=== PATIENT | male | born 1950 | race Caucasian/White ===

== ENCOUNTER 2017-01-20 22:36 | Observation (INO) | payer BC, MEDICARE, OTHER ==
[~2017-01-20] VITALS: Ht 167.6 cm; Wt 71.0 kg
[2017-01-20] MEDS ORDERED: LORazepam 2 MG/ML, 1ML IM ONE (23:00)
[2017-01-20] MEDS ORDERED: ZIPRASIDONE 20 MG INJ IM ONE ×2 (23:00→23:26)
[2017-01-20] MEDS ORDERED: LORazepam 1MG TABLET ONE (23:26)
[2017-01-20 23:54] LABS: BLOOD UREA NITROGEN 19 mg/dL (7-18)
[2017-01-20 23:56] LABS: ACETAMINOPHEN < 2 mcg/mL (10-30)
[2017-01-21] MEDS ORDERED: HYDROcodone/APAP 5/325 TABLET PO ONE (01:00)
[2017-01-21] MEDS ORDERED: HYDROcodone/APAP 5/325 TABLET ONE (01:04)
[2017-01-21] MEDS ORDERED: OXYC15TA PO (02:39)
[2017-01-21] MEDS ORDERED: [UNRECOGNIZED DRUG - CODE] PO (02:39)
[2017-01-21] MEDS ORDERED: POLYETHYLENE GLYCOL 17 GM PACKET PO PRN (03:00)
[2017-01-21] MEDS ORDERED: DIPHENHYDRAMINE 50 MG CAPSULE PO PRN (03:00)
[2017-01-21] MEDS ORDERED: DOCUSATE 100 MG CAPSULE PO PRN (03:00)
[2017-01-21] MEDS ORDERED: LORazepam 1MG TABLET PO PRN (03:00)
[2017-01-21] MEDS ORDERED: morphine SULFATE ORAL.CONC 20 MG/ML PO PRN (03:00)
[2017-01-21] MEDS ORDERED: ACETAMINOPHEN 325 MG TABLET PO PRN (03:00)
[2017-01-21] MEDS ORDERED: HALOPERIDOL 5 MG TABLET PO PRN (03:00)
[2017-01-21] MEDS ORDERED: ZIPRASIDONE 20 MG INJ IM PRN (03:00)
[2017-01-21] MEDS ORDERED: ONDANSETRON ODT 4 MG PO PRN (03:00)
[2017-01-21] MEDS: OXYcodone IR 5MG TABLET PO PRN ×2 (04:17→08:43)
[2017-01-21 05:42] VITALS: BP 130/56
[2017-01-21 07:40] VITALS: BP 153/95
[2017-01-21] MEDS ORDERED: SENNA/DOCUSATE TABLET PO SCH (09:00)
[2017-01-21 14:03] LABS: DAU SCREEN DISCLAIMER
[2017-01-21] MEDS ORDERED: OXYcodone IR 5MG TABLET PO PRN (15:00)
== END 2017-01-21 18:24 ==
LOC: ED 01-21 02:18 → EDIP 01-21 02:34 → SUATTDRO 01-21 02:36 → 3E 01-21 03:30
PROVIDERS: ADMIT Family Medicine; ATTEND Family Medicine
DX: R45.851 Suicidal ideations (principal); F10.120 Alcohol abuse with intoxication, uncomplicated; F33.2 Major depressive disorder, recurrent severe without psychotic features; F43.21 Adjustment disorder with depressed mood
CPT/HCPCS: 36415; 80048; 80307; 80329; 82040; 85025; 96372; 99285; G0378; J2060; J3486; Q0177; G0480

== ENCOUNTER 2017-03-05 10:35 | Emergency (ER) | payer MEDICARE ==
[~2017-03-05] VITALS: Ht 165.1 cm; Wt 63.0 kg
[~2017-03-05 10:35] MED LIST: OXYC15TA PO; [UNRECOGNIZED DRUG - CODE] PO
[2017-03-05 10:52] VITALS: BP 138/87
== END 2017-03-05 11:50 | disposition left against medical advice (07) ==
LOC: ED 11:30
DX: F10.10 Alcohol abuse, uncomplicated (principal); Z53.21 Procedure and treatment not carried out due to patient leaving prior to being seen by health care provider

== ENCOUNTER 2017-04-26 21:24 | Emergency (ER) | payer MEDICARE ==
[~2017-04-26] VITALS: Ht 167.6 cm; Wt 67.0 kg
[2017-04-26 21:30] VITALS: BP 107/74
[2017-04-26] MEDS ORDERED: DIPH,PERTUSS(ACELL),TET VAC/PF 0.5 ML IM-VACC ONE (22:00)
== END 2017-04-26 22:21 | disposition left against medical advice (07) ==
LOC: ED 22:06
DX: S01.112A Laceration without foreign body of left eyelid and periocular area, initial encounter (principal); S01.01XA Laceration without foreign body of scalp, initial encounter; F32.9 Major depressive disorder, single episode, unspecified; W19.XXXA Unspecified fall, initial encounter; Y93.89 Activity, other specified; Y92.488 Other paved roadways as the place of occurrence of the external cause; Y99.8 Other external cause status
CPT/HCPCS: 99283

== ENCOUNTER 2017-05-01 12:02 | Inpatient (IN) | payer MEDICARE ==
[~2017-05-01] VITALS: Ht 170.2 cm; Wt 68.0 kg
[2017-05-01] MEDS ORDERED: ZIPRASIDONE 20 MG INJ IM ONE ×2 (12:22→12:30)
[2017-05-01] MEDS ORDERED: DIPH,PERTUSS(ACELL),TET VAC/PF 0.5 ML IM-VACC ONE ×2 (12:30→14:43)
[2017-05-01] MEDS ORDERED: PLEASE ENTER HEIGHT AND WEIGHT MC SCH (12:30)
[2017-05-01 14:08] LABS: HEMATOCRIT 32.4 % (39.2-51.8); HEMOGLOBIN 10.8 g/dL (13.7-18.0)
[2017-05-01 14:18] LABS: BLOOD UREA NITROGEN 9 mg/dL (7-18)
[2017-05-01 14:43] LABS: ACETAMINOPHEN 2 mcg/mL (10-30); ASPARTATE AMINO TRANSFERASE 165 U/L (15-37)
[2017-05-01] MEDS ORDERED: LORazepam 2 MG/ML, 1ML ONE (14:43)
[2017-05-01 14:53] LABS: DAU SCREEN DISCLAIMER
[2017-05-01] MEDS ORDERED: LORazepam 2 MG/ML, 1ML IVPush PRN (15:00)
[2017-05-01] MEDS: D5%-0.45NACL+KCL 40MEQ 1,000 ML IV SCH ×2 (15:00→20:08)
[2017-05-01] MEDS ORDERED: MAGNESIUM SULFATE 1 GM, THIAMINE 100 MG, FOLIC ACID 1 MG, MVI ADULT 10 ML in SODIUM CHL... IV ONE (15:00)
[2017-05-01] MEDS ORDERED: POTASSIUM CHLORIDE 20 MEQ TAB.ER.PRT PO ONE (15:00)
[2017-05-01] MEDS ORDERED: ACETAMINOPHEN 325 MG TABLET PO PRN (16:00)
[2017-05-01] MEDS ORDERED: POLYETHYLENE GLYCOL 17 GM PACKET PO PRN (16:00)
[2017-05-01] MEDS ORDERED: DOCUSATE 100 MG CAPSULE PO PRN (16:00)
[2017-05-01] MEDS ORDERED: morphine SULFATE 10 MG/ML, 1ML IVPush PRN (16:00)
[2017-05-01] MEDS ORDERED: hydrALAzine 20 MG/ML, 1ML IVPush PRN (16:00)
[2017-05-01] MEDS ORDERED: ONDANSETRON 2MG/ML, 2ML IVPush PRN (16:00)
[2017-05-01] MEDS ORDERED: TRAZODONE 50MG TABLET PO PRN (16:00)
[2017-05-01] MEDS ORDERED: LORazepam 2 MG/ML, 1ML IV PRN (16:00)
[2017-05-01 16:35] VITALS: BP 136/86
[2017-05-01] MEDS: LORazepam 2 MG/ML, 1ML IV PRN ×4 (17:26→23:43)
[2017-05-01] MEDS: OXYcodone IR 5MG TABLET PO PRN ×2 (18:24→22:26)
[2017-05-01 18:45] VITALS: BP 150/94
[2017-05-01] MEDS: POTASSIUM CHLORIDE 20 MEQ TAB.ER.PRT PO SCH (20:08)
[2017-05-01] MEDS ORDERED: TRAZODONE 50MG TABLET ONE (23:40)
[2017-05-01] MEDS: D5%-0.45NACL+KCL 20MEQ 1,000 ML IV SCH (23:48)
[2017-05-02 01:15] VITALS: BP 127/82
[2017-05-02] MEDS: LORazepam 2 MG/ML, 1ML IV PRN ×14 (01:40→23:31)
[2017-05-02] MEDS: OXYcodone IR 5MG TABLET PO PRN ×3 (02:31→10:53)
[2017-05-02] MEDS ORDERED: LORazepam 2 MG/ML, 1ML ONE ×6 (05:47→14:16)
[2017-05-02 06:07] LABS: ASPARTATE AMINO TRANSFERASE 99 U/L (15-37); BLOOD UREA NITROGEN 11 mg/dL (7-18)
[2017-05-02 06:19] LABS: HEMATOCRIT 30.9 % (39.2-51.8); HEMOGLOBIN 10.4 g/dL (13.7-18.0); WHITE BLOOD COUNT 6.1 x10^3/uL (3.4-10)
[2017-05-02] MEDS: MULTIVITAMINS/MINERALS TABLET PO SCH (07:56)
[2017-05-02] MEDS: POTASSIUM CHLORIDE 20 MEQ TAB.ER.PRT PO SCH ×2 (07:56→18:41)
[2017-05-02 08:07] VITALS: BP 146/87
[2017-05-02] MEDS ORDERED: POTASSIUM CHLORIDE 20 MEQ TAB.ER.PRT PO ONE (09:30)
[2017-05-02] MEDS ORDERED: DIPHENHYDRAMINE 50 MG/ML, 1ML ONE (12:01)
[2017-05-02] MEDS ORDERED: DIPHENHYDRAMINE 50 MG/ML, 1ML IVPush ONE (12:30)
[2017-05-02 12:40] VITALS: BP 153/85
[2017-05-02] MEDS: D5%-0.45NACL+KCL 20MEQ 1,000 ML IV SCH (15:34)
[2017-05-02 18:27] VITALS: BP 136/84
[2017-05-03 00:40] VITALS: BP 179/111
[2017-05-03] MEDS: LORazepam 2 MG/ML, 1ML IV PRN ×7 (01:21→23:20)
[2017-05-03] MEDS: D5%-0.45NACL+KCL 20MEQ 1,000 ML IV SCH ×2 (05:22→23:07)
[2017-05-03 05:34] LABS: ASPARTATE AMINO TRANSFERASE 83 U/L (15-37); BLOOD UREA NITROGEN 3 mg/dL (7-18)
[2017-05-03 07:03] VITALS: BP 122/82
[2017-05-03] MEDS: OXYcodone IR 5MG TABLET PO PRN ×3 (07:37→16:30)
[2017-05-03] MEDS: MULTIVITAMINS/MINERALS TABLET PO SCH (09:21)
[2017-05-03 12:34] VITALS: BP 123/68
[2017-05-03 19:57] VITALS: BP 116/81
[2017-05-03 22:30] VITALS: BP 122/76
[2017-05-04 00:50] VITALS: BP 119/81
[2017-05-04] MEDS: LORazepam 2 MG/ML, 1ML IV PRN ×7 (01:14→20:21)
[2017-05-04] MEDS: OXYcodone IR 5MG TABLET PO PRN ×3 (04:35→21:08)
[2017-05-04 07:31] VITALS: BP 111/74
[2017-05-04] MEDS: MULTIVITAMINS/MINERALS TABLET PO SCH (08:31)
[2017-05-04] MEDS: D5%-0.45NACL+KCL 20MEQ 1,000 ML IV SCH (12:47)
[2017-05-04 14:07] VITALS: BP 117/78
[2017-05-04] MEDS ORDERED: hydrALAzine 20 MG/ML, 1ML IVPush PRN (15:30)
[2017-05-04] MEDS ORDERED: morphine SULFATE 10 MG/ML, 1ML IVPush PRN (15:30)
[2017-05-04] MEDS ORDERED: DOCUSATE 100 MG CAPSULE PO PRN (15:30)
[2017-05-04] MEDS ORDERED: POLYETHYLENE GLYCOL 17 GM PACKET PO PRN (15:30)
[2017-05-04] MEDS ORDERED: ONDANSETRON 2MG/ML, 2ML IVPush PRN (15:30)
[2017-05-04] MEDS ORDERED: ACETAMINOPHEN 325 MG TABLET PO PRN (15:30)
[2017-05-04] MEDS ORDERED: LORazepam 2 MG/ML, 1ML IV PRN ×4 (15:30)
[2017-05-04 19:12] VITALS: BP 113/74
[2017-05-05] MEDS: D5%-0.45NACL+KCL 20MEQ 1,000 ML IV SCH (00:40)
[2017-05-05] MEDS: OXYcodone IR 5MG TABLET PO PRN ×6 (01:08→23:57)
[2017-05-05 01:31] VITALS: BP 130/84
[2017-05-05 07:11] VITALS: BP 130/93
[2017-05-05] MEDS: MULTIVITAMINS/MINERALS TABLET PO SCH (09:42)
[2017-05-05 13:07] VITALS: BP 115/80
[2017-05-05 18:42] VITALS: BP 119/82
[2017-05-06 00:38] VITALS: BP 130/86
[2017-05-06] MEDS: OXYcodone IR 5MG TABLET PO PRN ×3 (04:07→20:19)
[2017-05-06 07:55] VITALS: BP 114/75
[2017-05-06] MEDS: MULTIVITAMINS/MINERALS TABLET PO SCH (09:35)
[2017-05-06 14:44] VITALS: BP 125/78
[2017-05-06 21:31] VITALS: BP_SYST 118; BP_SYST 133; BP_DIAS 80; BP_DIAS 87
[2017-05-07 01:55] VITALS: BP 110/76
[2017-05-07] MEDS: OXYcodone IR 5MG TABLET PO PRN ×3 (04:43→21:13)
[2017-05-07 08:30] VITALS: BP 128/84
[2017-05-07] MEDS: MULTIVITAMINS/MINERALS TABLET PO SCH (09:36)
[2017-05-07 18:16] VITALS: BP 132/80
[2017-05-07 18:56] VITALS: BP 137/87
[2017-05-08 02:00] VITALS: BP 131/86
[2017-05-08] MEDS: OXYcodone IR 5MG TABLET PO PRN ×3 (05:12→21:37)
[2017-05-08 06:41] VITALS: BP 136/86
[2017-05-08] MEDS: MULTIVITAMINS/MINERALS TABLET PO SCH (09:05)
[2017-05-08 13:13] VITALS: BP 122/80
[2017-05-08] MEDS ORDERED: MULT-484 PO (17:00)
[2017-05-08 19:55] VITALS: BP 137/86
[2017-05-08] MEDS: TRAZODONE 50MG TABLET PO PRN ×2 (20:28→21:37)
[2017-05-09] MEDS ORDERED: LORazepam 1MG TABLET PO PRN (01:00)
[2017-05-09] MEDS: OXYcodone IR 5MG TABLET PO PRN ×2 (05:43→13:27)
[2017-05-09 07:19] VITALS: BP 119/83
[2017-05-09] MEDS: MULTIVITAMINS/MINERALS TABLET PO SCH (08:14)
== END 2017-05-09 14:19 | DRG 896 ==
LOC: ED 12:51 → EDIP 14:51 → 5SO 16:29 → 4WST 16:38 → 3NE 05-05 22:15 → 3E 05-08 19:15
PROVIDERS: ADMIT Internal Medicine; ATTEND Internal Medicine
PROC: HZ2ZZZZ Detoxification Services for Substance Abuse Treatment (ICD-10-PCS; principal; 2017-05-01)
DX: F10.239 Alcohol dependence with withdrawal, unspecified (principal); G93.41 Metabolic encephalopathy; R45.851 Suicidal ideations; E87.0 Hyperosmolality and hypernatremia; E44.0 Moderate protein-calorie malnutrition; D50.9 Iron deficiency anemia, unspecified; F10.229 Alcohol dependence with intoxication, unspecified; Y90.9 Presence of alcohol in blood, level not specified; K70.10 Alcoholic hepatitis without ascites; E87.6 Hypokalemia; Z68.23 Body mass index [BMI] 23.0-23.9, adult; R62.7 Adult failure to thrive; D53.9 Nutritional anemia, unspecified; F32.9 Major depressive disorder, single episode, unspecified; R29.6 Repeated falls; Z87.891 Personal history of nicotine dependence; Z90.49 Acquired absence of other specified parts of digestive tract; Z91.5 Personal history of self-harm
CPT/HCPCS: 36415; 70450; 80053; 80074; 80307; 80329; 82140; 82550; 82607; 83735; 84100; 84425; 85025; 85610; 90471; 90715; 93005; 96372; 96374; J3411; J3475; J3486; G0480; J1200; J2060; J3480; J7030

== ENCOUNTER 2017-05-27 12:30 | Inpatient (IN) | payer MEDICARE, OTHER ==
[~2017-05-27] VITALS: Ht 165.1 cm; Wt 60.2 kg
[~2017-05-27 12:30] MED LIST changes: +MULT-484 PO
[2017-05-27] MEDS ORDERED: SODIUM CHLORIDE 0.9% 1,000ML IVBOLUS ONE ×2 (13:30→17:30)
[2017-05-27] MEDS ORDERED: THIAMINE 100 MG in SODIUM CHLORIDE 0.9% 50 ML IVPB ONE ×2 (13:30→14:30)
[2017-05-27] MEDS ORDERED: SODIUM CHLORIDE FLUSH 10ML SYR IVF ONE (13:30)
[2017-05-27] MEDS ORDERED: LORazepam 2 MG/ML, 1ML ONE ×4 (13:43→19:59)
[2017-05-27 13:46] LABS: HEMATOCRIT 40.6 % (39.2-51.8); HEMOGLOBIN 13.5 g/dL (13.7-18.0); WHITE BLOOD COUNT 7.8 x10^3/uL (3.4-10)
[2017-05-27 13:55] LABS: ASPARTATE AMINO TRANSFERASE 244 U/L (15-37); BLOOD UREA NITROGEN 12 mg/dL (7-18)
[2017-05-27] MEDS: LORazepam 2 MG/ML, 1ML IVPush PRN ×4 (14:14→23:06)
[2017-05-27] MEDS ORDERED: NS + 40MEQ KCL 1,000 ML IV ONE ×2 (16:13→16:33)
[2017-05-27] MEDS ORDERED: POTASSIUM CHLORIDE 20 MEQ TAB.ER.PRT PO ONE (16:30)
[2017-05-27] MEDS ORDERED: POTASSIUM CHLORIDE 20 MEQ TAB.ER.PRT ONE (16:33)
[2017-05-27] MEDS ORDERED: ONDANSETRON 2MG/ML, 2ML ONE (17:22)
[2017-05-27] MEDS ORDERED: FOLIC ACID 1 MG, THIAMINE 100 MG, MVI ADULT 10 ML in D5%-0.9% NACL 1,000 ML IV SCH (17:30)
[2017-05-27] MEDS ORDERED: ONDANSETRON 2MG/ML, 2ML IVPush PRN (17:30)
[2017-05-27] MEDS ORDERED: MAGNESIUM SULFATE PMX 4GM/100M 100 ML IV ONE (17:30)
[2017-05-27] MEDS ORDERED: LORazepam 1MG TABLET PO PRN ×3 (18:00)
[2017-05-27] MEDS ORDERED: DOCUSATE 100 MG CAPSULE PO PRN (18:00)
[2017-05-27] MEDS ORDERED: ONDANSETRON 2MG/ML, 2ML IV PRN (18:00)
[2017-05-27] MEDS ORDERED: ACETAMINOPHEN 325 MG TABLET PO PRN (18:00)
[2017-05-27] MEDS ORDERED: ENOXAPARIN 40 MG/0.4 ML SQ SCH (18:00)
[2017-05-27] MEDS ORDERED: LORazepam 0.5MG TABLET PO PRN (18:00)
[2017-05-27] MEDS ORDERED: BISACODYL 10 MG SUPP PR PRN (18:00)
[2017-05-27] MEDS ORDERED: LORazepam 2 MG/ML, 1ML IV PRN ×3 (18:00)
[2017-05-27] MEDS ORDERED: LABETALOL 5MG/ML, 20ML IV PRN (18:00)
[2017-05-27 19:29] LABS: DAU SCREEN DISCLAIMER
[2017-05-27 22:30] VITALS: BP 119/74
[2017-05-28] MEDS: CHLORDIAZEPOXIDE 10 MG CAPSULE PO SCH ×2 (00:23→08:02)
[2017-05-28] MEDS: VANCOMYCIN 50 MG/ML ORAL SUSP PO SCH ×2 (01:50→08:02)
[2017-05-28 02:19] VITALS: BP 116/70
[2017-05-28] MEDS: LORazepam 2 MG/ML, 1ML IV PRN ×2 (04:04→06:42)
[2017-05-28 06:17] LABS: HEMOGLOBIN 11.5 g/dL (13.7-18.0); WHITE BLOOD COUNT 4.4 x10^3/uL (3.4-10)
[2017-05-28 06:18] LABS: DIFF TOTAL CELLS COUNTED 100 CELL DIFF
[2017-05-28 06:24] LABS: ASPARTATE AMINO TRANSFERASE 127 U/L (15-37); BLOOD UREA NITROGEN 11 mg/dL (7-18)
[2017-05-28 06:27] LABS: ANISOCYTOSIS 1+; VERIFY COUNTS? YES
[2017-05-28 07:36] VITALS: BP 116/78
[2017-05-28] MEDS ORDERED: POTASSIUM CHLORIDE 20 MEQ TAB.ER.PRT PO SCH (09:00)
== END 2017-05-28 10:18 | disposition left against medical advice (07) | DRG 894 ==
LOC: ED 16:24 → EDIP 16:51 → 4EST 22:15
PROVIDERS: ADMIT Internal Medicine; ATTEND Internal Medicine
DX: F10.239 Alcohol dependence with withdrawal, unspecified (principal); E87.2 Acidosis; E87.8 Other disorders of electrolyte and fluid balance, not elsewhere classified; E87.1 Hypo-osmolality and hyponatremia; E87.6 Hypokalemia; E83.42 Hypomagnesemia; F32.9 Major depressive disorder, single episode, unspecified; R29.6 Repeated falls; Z91.5 Personal history of self-harm
CPT/HCPCS: 36415; 70450; 80053; 80307; 82550; 83605; 83735; 84100; 85025; 87324; 87493; 93005; 96365; 96375; J1650; J2405; J3370; J3411; J7042; G0479; J2060; J3475; J3480; J7030

== ENCOUNTER 2017-06-01 20:17 | Emergency (ER) | payer MEDICARE, OTHER ==
[~2017-06-01] VITALS: Ht 165.1 cm; Wt 70.0 kg
[2017-06-01 20:28] VITALS: BP 122/79
== END 2017-06-01 22:46 | disposition home or self-care (01) ==
LOC: ED 22:28
DX: F10.220 Alcohol dependence with intoxication, uncomplicated (principal); Z87.891 Personal history of nicotine dependence
CPT/HCPCS: 70450; 99284

== ENCOUNTER 2017-06-05 07:13 | Inpatient (IN) | payer MEDICARE ==
[~2017-06-05] VITALS: Ht 165.1 cm; Wt 66.1 kg
[2017-06-05] MEDS ORDERED: SODIUM CHLORIDE 0.9% 1,000 ML IV ONE ×3 (07:28→14:30)
[2017-06-05] MEDS ORDERED: FAMOTIDINE 20 MG/2 ML IVP ONE (07:30)
[2017-06-05] MEDS ORDERED: ONDANSETRON 2MG/ML, 2ML IVPush ONE (07:30)
[2017-06-05] MEDS ORDERED: THIAMINE 100MG TABLET PO ONE (07:30)
[2017-06-05] MEDS ORDERED: SODIUM CHLORIDE 0.9% 1,000ML IVBOLUS ONE (07:30)
[2017-06-05] MEDS ORDERED: ONDANSETRON 2MG/ML, 2ML ONE (07:45)
[2017-06-05] MEDS ORDERED: LORazepam 2 MG/ML, 1ML ONE ×3 (07:47→11:23)
[2017-06-05] MEDS ORDERED: FAMOTIDINE 20 MG/2 ML ONE (07:47)
[2017-06-05] MEDS: LORazepam 2 MG/ML, 1ML IVPush PRN ×4 (07:52→11:27)
[2017-06-05 08:02] LABS: ASPARTATE AMINO TRANSFERASE 937 U/L (15-37); BLOOD UREA NITROGEN 9 mg/dL (7-18)
[2017-06-05 08:33] LABS: HEMATOCRIT 34.7 % (39.2-51.8); HEMOGLOBIN 11.6 g/dL (13.7-18.0); WHITE BLOOD COUNT 3.8 x10^3/uL (3.4-10)
[2017-06-05] MEDS ORDERED: MORPHINE SULFATE 4 MG/ML, 1ML IVPush PRN ×2 (09:00→14:30)
[2017-06-05] MEDS ORDERED: SODIUM CHLORIDE FLUSH 10ML SYR IVF ONE (10:00)
[2017-06-05] MEDS ORDERED: MORPHINE SULFATE 4 MG/ML, 1ML ONE (14:11)
[2017-06-05] MEDS ORDERED: SODIUM CHLORIDE 0.9% 1,000 ML IV SCH (14:54)
[2017-06-05] MEDS ORDERED: ONDANSETRON 2MG/ML, 2ML IVPush PRN (15:00)
[2017-06-05] MEDS ORDERED: hydrALAzine 20 MG/ML, 1ML IVPush PRN (15:00)
[2017-06-05] MEDS ORDERED: HALOPERIDOL 5 MG/ML IM PRN (15:00)
[2017-06-05] MEDS ORDERED: morphine SULFATE 10 MG/ML, 1ML IVPush PRN (15:00)
[2017-06-05] MEDS ORDERED: LORazepam 2 MG/ML, 1ML IVPush PRN (15:00)
[2017-06-05] MEDS ORDERED: POTASSIUM CHLORIDE 20 MEQ, MAGNESIUM SULFATE 1 GM, FOLIC ACID 1 MG, THIAMINE 100 MG, MV... IV SCH (15:00)
[2017-06-05 15:18] VITALS: BP 146/80
[2017-06-06] MEDS ORDERED: PANTOPRAZOLE 40 MG IV IVPush SCH (07:30)
== END 2017-06-05 17:40 | disposition left against medical advice (07) | DRG 432 ==
LOC: ED 08:52 → EDIP 09:40 → 3NE 14:52
PROVIDERS: ADMIT Internal Medicine; ATTEND Internal Medicine
DX: K70.10 Alcoholic hepatitis without ascites (principal); K85.20 Alcohol induced acute pancreatitis without necrosis or infection; F10.239 Alcohol dependence with withdrawal, unspecified; K76.0 Fatty (change of) liver, not elsewhere classified; N28.1 Cyst of kidney, acquired; F32.9 Major depressive disorder, single episode, unspecified; R74.0 Nonspecific elevation of levels of transaminase and lactic acid dehydrogenase [LDH]; Z90.49 Acquired absence of other specified parts of digestive tract; Z91.81 History of falling
CPT/HCPCS: 36415; 74022; 76700; 80053; 81001; 83690; 85025; 96361; 96374; 96375; 96376; J2405; J1630; J2060; J2270; J7030; S0028

== ENCOUNTER 2017-12-01 10:08 | Inpatient (IN) | payer MEDICARE ==
[~2017-12-01] VITALS: Ht 170.2 cm; Wt 69.5 kg
[2017-12-01] MEDS ORDERED: SODIUM CHLORIDE 0.9% 1,000ML IVBOLUS ONE ×2 (11:00→12:30)
[2017-12-01] MEDS ORDERED: ONDANSETRON 2MG/ML, 2ML IVPush ONE (11:00)
[2017-12-01] MEDS ORDERED: SODIUM CHLORIDE FLUSH 10ML SYR IVF ONE (11:00)
[2017-12-01] MEDS ORDERED: PANTOPRAZOLE 80 MG in SODIUM CHLORIDE 0.9% 50 ML IVPB ONE (11:00)
[2017-12-01] MEDS ORDERED: PANTOPRAZOLE 80 MG in SODIUM CHLORIDE 0.9% 100 ML IV SCH (11:00)
[2017-12-01] MEDS ORDERED: ONDANSETRON 2MG/ML, 2ML ONE (11:06)
[2017-12-01] MEDS ORDERED: MORPHINE SULFATE 4 MG/ML, 1ML ONE ×2 (11:08→11:45)
[2017-12-01] MEDS: MORPHINE SULFATE 4 MG/ML, 1ML IVPush PRN ×2 (11:08→11:47)
[2017-12-01] MEDS ORDERED: THIAMINE 100 MG in SODIUM CHLORIDE 0.9% 50 ML IV STA (11:10)
[2017-12-01 11:55] LABS: INTERNATIONAL NORMALIZED RATIO 1.16 (0.93-1.1)
[2017-12-01 12:00] LABS: ALBUMIN 2.8 g/dL (3.4-5.0); ANION GAP 31 mmol/L (5-15); CHLORIDE 88 mmol/L (98-107)
[2017-12-01 12:09] LABS: ALANINE AMINOTRANSFERASE 247 U/L (12-78); ALKALINE PHOSPHATASE 450 U/L (45-117); BILIRUBIN,TOTAL 6.2 mg/dL (0.2-1.0); CREATININE 1.56 mg/dL (0.7-1.3); TOTAL PROTEIN 5.4 g/dL (6.4-8.2)
[2017-12-01 12:25] LABS: MEAN CORPUSCULAR HGB CONC 33.5 g/dL (33.2-36.2); MEAN CORPUSCULAR VOLUME 89.7 fL (81-97); MEAN PLATELET VOLUME 9.4 fL (7.4-10.4); PLATELET COUNT 74 x10^3/uL (130-400); RED BLOOD COUNT 3.08 x10^6/uL (4.38-5.82); RED CELL DISTRIBUTION WIDTH 19.6 % (9.4-14.8)
[2017-12-01] MEDS ORDERED: LORazepam 2 MG/ML, 1ML ONE ×2 (12:25→14:43)
[2017-12-01 12:26] LABS: MD YES
[2017-12-01] MEDS ORDERED: NS + 40MEQ KCL 1,000 ML IV ONE ×2 (12:29→13:21)
[2017-12-01 12:30] LABS: <PLATELET ESTIMATE> DECREASED; ANISOCYTOSIS 1+; BAND#(MANUAL) 1.19 x10^3/uL; BANDS%(MANUAL) 10 % (0-7); LARGE PLATELETS 1+; LYMPH#(MANUAL) 0.48 x10^3/uL (1-3.4); LYMPHS% (MANUAL) 4 % (22-44); MONOS#(MANUAL) 0.48 x10^3/uL (0.3-2.7); MONOS% (MANUAL) 4 % (2-9); NRBC % (MANUAL) 1 % (0-1); SEG#(MANUAL) 9.76 x10^3/uL (1.8-6.8); SEGS% (MANUAL) 82 % (42-75)
[2017-12-01] MEDS ORDERED: LORazepam 2 MG/ML, 1ML IVPush ONE (12:30)
[2017-12-01 12:31] LABS: POLYCHROMASIA 1+
[2017-12-01] MEDS ORDERED: HYDROmorphone 2 MG/ML, 1ML IVPush PRN (14:00)
[2017-12-01] MEDS ORDERED: PROMETHAZINE 25 MG/ML, 1ML IM PRN (14:00)
[2017-12-01] MEDS ORDERED: DOCUSATE 100 MG CAPSULE PO PRN (14:00)
[2017-12-01] MEDS: KSCALE TO 4.5 IV SCH ×3 (14:00→20:00)
[2017-12-01] MEDS ORDERED: LORazepam 2 MG/ML, 1ML IVPush PRN (14:00)
[2017-12-01] MEDS ORDERED: ACETAMINOPHEN 325 MG TABLET PO PRN (14:00)
[2017-12-01] MEDS ORDERED: POLYETHYLENE GLYCOL 17 GM PACKET PO PRN (14:00)
[2017-12-01 15:03] LABS: PH, VENOUS 7.469 pH (7.320-7.420)
[2017-12-01 15:06] LABS: CHOL/HDL RATIO 9.7; LDL/HDL RATIO 6.7 (0.5-3.0); THYROID STIMULATING HORMONE 0.685 mIU/L (0.358-3.740)
[2017-12-01 15:09] LABS: ANION GAP 14 mmol/L (5-15); CALCIUM 6.5 mg/dL (8.5-10.1); CHLORIDE 95 mmol/L (98-107); CREATININE 1.22 mg/dL (0.7-1.3)
[2017-12-01] MEDS: [UNRECOGNIZED DRUG - OTHER] IV SCH ×2 (15:22→22:00)
[2017-12-01] MEDS: POTASSIUM CHLORIDE IV SCH ×2 (15:22→22:00)
[2017-12-01] MEDS: SODIUM BICARBONATE IV SCH ×2 (15:22→22:00)
[2017-12-01 15:23] LABS: TROPONIN I 0.017 ng/mL (0.000-0.045)
[2017-12-01] MEDS ORDERED: MAGNESIUM SULFATE PMX 4GM/100M 100 ML IV ONE (15:30)
[2017-12-01] MEDS ORDERED: SODIUM CHLORIDE 0.9% IV ONE (16:00)
[2017-12-01] MEDS ORDERED: CHLORDIAZEPOXIDE 25 MG CAPSULE PO SCH (16:00)
[2017-12-01] MEDS ORDERED: PHENOBARBITAL SODIUM IV ONE (16:00)
[2017-12-01] MEDS: DEXMEDETOMIDINE 200 MCG in SODIUM CHLORIDE 0.9% 48 ML IV PRN (16:07)
[2017-12-01 16:25] LABS: HCT (SEDRATE) 27.7 % (39.2-51.8)
[2017-12-01] MEDS ORDERED: POTASSIUM CHLORIDE 30 MEQ in SODIUM CHLORIDE 0.9% 100 ML IV ONE (17:00)
[2017-12-01] MEDS: POTASSIUM CHLORIDE 20 MEQ, MAGNESIUM SULFATE 1 GM, FOLIC ACID 1 MG, THIAMINE 200 MG, MV... IV SCH (17:13)
[2017-12-01] MEDS ORDERED: SODIUM CHLORIDE 0.9% IV PRN (19:00)
[2017-12-01] MEDS ORDERED: PHENOBARBITAL SODIUM IV PRN (19:00)
[2017-12-01 20:27] LABS: ANION GAP 8 mmol/L (5-15); CALCIUM 6.5 mg/dL (8.5-10.1); CHLORIDE 95 mmol/L (98-107); CREATININE 0.98 mg/dL (0.7-1.3)
[2017-12-01 20:31] LABS: TROPONIN I 0.027 ng/mL (0.000-0.045)
[2017-12-01] MEDS ORDERED: POTASSIUM CHLORIDE PMX 100 ML IVPB ONE (22:00)
[2017-12-01] MEDS ORDERED: POTASSIUM CHLORIDE 20 MEQ in SODIUM CHLORIDE 0.9% 100 ML IV ONE (22:30)
[2017-12-01] MEDS: OXYcodone IR 5MG TABLET PO PRN (22:44)
[2017-12-02 00:01] LABS: MICROSCOPIC INDICATED
[2017-12-02 00:02] LABS: CULTURE INDICATED? YES
[2017-12-02 00:10] LABS: AMPHETAMINE SCREEN, URINE Negative (Negative); BARBITURATE SCREEN, URINE Positive (Negative); BENZODIAZEPINE SCREEN, URINE Negative (Negative); CANNABINOID SCREEN, URINE Negative (Negative); CHLORIDE,URINE RANDOM 30 mmol/L; COCAINE SCREEN, URINE Negative (Negative); METHADONE SCREEN, URINE Negative (Negative); OPIATE SCREEN, URINE Positive (Negative); POTASSIUM,URINE RANDOM 30 mmol/L; SODIUM,URINE RANDOM 26 mmol/L
[2017-12-02] MEDS: DEXMEDETOMIDINE 200 MCG in SODIUM CHLORIDE 0.9% 48 ML IV PRN ×3 (00:34→18:16)
[2017-12-02 01:01] LABS: ANION GAP 7 mmol/L (5-15); CALCIUM 6.8 mg/dL (8.5-10.1); CHLORIDE 95 mmol/L (98-107); CREATININE 0.94 mg/dL (0.7-1.3)
[2017-12-02] MEDS ORDERED: POTASSIUM CHLORIDE PMX 100 ML IV ONE (01:30)
[2017-12-02] MEDS: KSCALE TO 4.5 IV SCH ×2 (04:00)
[2017-12-02 04:21] VITALS: BP 90/57
[2017-12-02] MEDS: POTASSIUM CHLORIDE IV SCH (04:31)
[2017-12-02] MEDS: SODIUM BICARBONATE IV SCH (04:31)
[2017-12-02] MEDS: [UNRECOGNIZED DRUG - OTHER] IV SCH (04:31)
[2017-12-02 04:33] LABS: ALANINE AMINOTRANSFERASE 162 U/L (12-78); ALBUMIN 2.4 g/dL (3.4-5.0); ANION GAP 5 mmol/L (5-15); CALCIUM 7.1 mg/dL (8.5-10.1); CHLORIDE 96 mmol/L (98-107); CREATININE 0.82 mg/dL (0.7-1.3)
[2017-12-02 04:37] LABS: ALKALINE PHOSPHATASE 312 U/L (45-117); BILIRUBIN,TOTAL 3.1 mg/dL (0.2-1.0); CHOL/HDL RATIO 7.9; CHOLESTEROL, TOTAL 158 mg/dL (140-239); HDL CHOL % 13 % (26-37); HDL CHOLESTEROL (DIRECT) 20 mg/dL (40-60); LDL CHOLESTEROL,CALCULATED 105 mg/dL (54-169); LDL/HDL RATIO 5.3 (0.5-3.0); TOTAL PROTEIN 4.5 g/dL (6.4-8.2); TRIGLYCERIDES 166 mg/dL (50-200); VLDL CHOLESTEROL 33 mg/dL (0-25)
[2017-12-02 05:44] LABS: MEAN CORPUSCULAR HEMOGLOBIN 30.4 pg (27.5-34.5); MEAN CORPUSCULAR VOLUME 89.4 fL (81-97); MEAN PLATELET VOLUME 8.4 fL (7.4-10.4); RED BLOOD COUNT 2.66 x10^6/uL (4.38-5.82); RED CELL DISTRIBUTION WIDTH 20.3 % (9.4-14.8)
[2017-12-02 05:45] LABS: BASOPHILS # (AUTO) 0.08 x10^3/uL (0-0.1); BASOPHILS % (AUTO) 2 % (0-1); EOSINOPHILS # (AUTO) 0.01 x10^3/uL (0-0.4); EOSINOPHILS % (AUTO) 0 % (1-7); LYMPHOCYTES % (AUTO) 17 % (22-44); MD SCAN; MONOCYTES # (AUTO) 0.23 x10^3/uL (0.2-0.8); MONOCYTES % (AUTO) 6 % (2-9); NEUTROPHILS # (AUTO) 3.24 x10^3/uL (1.8-6.8); NEUTROPHILS % (AUTO) 76 % (42-75); PLATELET COUNT 39 x10^3/uL (130-400)
[2017-12-02] MEDS: SENNA/DOCUSATE TABLET PO SCH (07:28)
[2017-12-02] MEDS ORDERED: PANTOPRAZOLE 40 MG IV IVPush SCH (07:30)
[2017-12-02] MEDS ORDERED: SODIUM PHOSPHATE 20 MMOL in SODIUM CHLORIDE 0.9% 500 ML IV ONE (08:00)
[2017-12-02] MEDS: PHENOBARBITAL 20 MG/5 ML ORAL SOL PO SCH ×2 (08:32→20:49)
[2017-12-02] MEDS: POTASSIUM CHLORIDE 20 MEQ in SODIUM CHLORIDE 0.45% 1,000 ML IV SCH ×2 (10:11→23:00)
[2017-12-02] MEDS ORDERED: SODIUM CHLORIDE 0.9%, 500ML IVBOLUS ONE ×2 (10:30→18:30)
[2017-12-02] MEDS ORDERED: [UNRECOGNIZED DRUG - OTHER] IV SCH (14:00)
[2017-12-02] MEDS ORDERED: POTASSIUM CHLORIDE IV SCH (14:00)
[2017-12-02] MEDS ORDERED: SODIUM BICARBONATE IV SCH (14:00)
[2017-12-02] MEDS: POTASSIUM CHLORIDE 20 MEQ, MAGNESIUM SULFATE 1 GM, FOLIC ACID 1 MG, THIAMINE 200 MG, MV... IV SCH (17:53)
[2017-12-02] MEDS ORDERED: SODIUM CHLORIDE 0.9% 1,000ML IVBOLUS ONE (20:00)
[2017-12-02] MEDS ORDERED: NOREPINEPHRINE 4 MG in SODIUM CHLORIDE 0.9% 246 ML IV PRN (23:30)
[2017-12-03] VITALS (7 sets, daily range): BP systolic 11–109; BP diastolic 61–72
[2017-12-03 00:06] LABS: MEAN CORPUSCULAR HEMOGLOBIN 30.2 pg (27.5-34.5); MEAN CORPUSCULAR HGB CONC 33.5 g/dL (33.2-36.2); MEAN PLATELET VOLUME 9.2 fL (7.4-10.4); RED BLOOD COUNT 2.18 x10^6/uL (4.38-5.82); RED CELL DISTRIBUTION WIDTH 20.9 % (9.4-14.8)
[2017-12-03 00:08] LABS: PLATELET COUNT 33 x10^3/uL (130-400)
[2017-12-03 00:16] LABS: ALANINE AMINOTRANSFERASE 138 U/L (12-78); ALBUMIN 2.3 g/dL (3.4-5.0); ANION GAP 7 mmol/L (5-15); CALCIUM 7.1 mg/dL (8.5-10.1); CHLORIDE 99 mmol/L (98-107)
[2017-12-03 00:18] LABS: ALKALINE PHOSPHATASE 316 U/L (45-117); BILIRUBIN,TOTAL 2.4 mg/dL (0.2-1.0); TOTAL PROTEIN 4.7 g/dL (6.4-8.2)
[2017-12-03 00:31] LABS: MD YES
[2017-12-03 00:38] LABS: ANISOCYTOSIS 1+; LYMPH#(MANUAL) 0.49 x10^3/uL (1-3.4); LYMPHS% (MANUAL) 19 % (22-44); MONOS% (MANUAL) 4 % (2-9); POLYCHROMASIA 1+; SEGS% (MANUAL) 77 % (42-75)
[2017-12-03 00:39] LABS: <PLATELET ESTIMATE> DECREASED; LARGE PLATELETS 1+
[2017-12-03] MEDS: POTASSIUM CHLORIDE 20 MEQ in SODIUM CHLORIDE 0.45% 1,000 ML IV SCH (03:27)
[2017-12-03] MEDS: DEXMEDETOMIDINE 200 MCG in SODIUM CHLORIDE 0.9% 48 ML IV PRN (03:27)
[2017-12-03 06:23] LABS: ALBUMIN 2.3 g/dL (3.4-5.0); ANION GAP 8 mmol/L (5-15); CALCIUM 6.9 mg/dL (8.5-10.1); CHLORIDE 97 mmol/L (98-107)
[2017-12-03 06:26] LABS: ALANINE AMINOTRANSFERASE 131 U/L (12-78); ALKALINE PHOSPHATASE 326 U/L (45-117); BILIRUBIN,TOTAL 2.9 mg/dL (0.2-1.0); CREATININE 0.64 mg/dL (0.7-1.3); TOTAL PROTEIN 4.7 g/dL (6.4-8.2)
[2017-12-03] MEDS ORDERED: POTASSIUM PHOSPHATE 44 MEQ in SODIUM CHLORIDE 0.9% 500 ML IV ONE (08:30)
[2017-12-03] MEDS ORDERED: PANTOPRAZOLE 80 MG in SODIUM CHLORIDE 0.9% 50 ML IV ONE (08:30)
[2017-12-03] MEDS ORDERED: SODIUM CHLORIDE 0.9% 1,000 ML IV SCH (08:30)
[2017-12-03 08:52] LABS: MEAN CORPUSCULAR HEMOGLOBIN 30.2 pg (27.5-34.5); MEAN CORPUSCULAR HGB CONC 33.9 g/dL (33.2-36.2); MEAN CORPUSCULAR VOLUME 89.2 fL (81-97); RED CELL DISTRIBUTION WIDTH 18.5 % (9.4-14.8)
[2017-12-03 09:08] LABS: BASOPHILS # (AUTO) 0.01 x10^3/uL (0-0.1); BASOPHILS % (AUTO) 0 % (0-1); EOSINOPHILS # (AUTO) 0.01 x10^3/uL (0-0.4); EOSINOPHILS % (AUTO) 0 % (1-7); LYMPHOCYTES # (AUTO) 0.43 x10^3/uL (1-3.4); LYMPHOCYTES % (AUTO) 15 % (22-44); MD SCAN; MONOCYTES # (AUTO) 0.15 x10^3/uL (0.2-0.8); MONOCYTES % (AUTO) 5 % (2-9); NEUTROPHILS # (AUTO) 2.31 x10^3/uL (1.8-6.8); NEUTROPHILS % (AUTO) 80 % (42-75)
[2017-12-03 09:12] LABS: MEAN PLATELET VOLUME 9.2 fL (7.4-10.4)
[2017-12-03 09:13] LABS: PLATELET COUNT 47 x10^3/uL (130-400)
[2017-12-03] MEDS: OCTREOTIDE 500 MCG in SODIUM CHLORIDE 0.9% 249 ML IV SCH ×2 (09:19→19:20)
[2017-12-03] MEDS: SENNA/DOCUSATE TABLET PO SCH (09:19)
[2017-12-03] MEDS: PANTOPRAZOLE 80 MG in SODIUM CHLORIDE 0.9% 100 ML IV SCH ×2 (09:19→19:20)
[2017-12-03] MEDS: PHENOBARBITAL 20 MG/5 ML ORAL SOL PO SCH ×2 (09:20→19:24)
[2017-12-03] MEDS: OXYcodone IR 5MG TABLET PO PRN ×4 (09:39→23:20)
[2017-12-03] MEDS: ONDANSETRON 2MG/ML, 2ML IVPush PRN (09:47)
[2017-12-03] MEDS: LACTATED RINGERS 1,000 ML IV SCH ×2 (16:59→21:40)
[2017-12-03] MEDS: POTASSIUM CHLORIDE 20 MEQ, MAGNESIUM SULFATE 1 GM, FOLIC ACID 1 MG, THIAMINE 200 MG, MV... IV SCH (18:08)
[2017-12-04] MEDS: PANTOPRAZOLE 80 MG in SODIUM CHLORIDE 0.9% 100 ML IV SCH (03:10)
[2017-12-04] MEDS: OXYcodone IR 5MG TABLET PO PRN ×2 (03:10→07:43)
[2017-12-04] MEDS: LACTATED RINGERS 1,000 ML IV SCH ×3 (04:20→17:40)
[2017-12-04 04:31] VITALS: BP 126/91
[2017-12-04] MEDS: OCTREOTIDE 500 MCG in SODIUM CHLORIDE 0.9% 249 ML IV SCH ×2 (05:25→11:36)
[2017-12-04 06:10] LABS: ALANINE AMINOTRANSFERASE 120 U/L (12-78); ALBUMIN 2.6 g/dL (3.4-5.0); ANION GAP 7 mmol/L (5-15); CALCIUM 7.3 mg/dL (8.5-10.1); CHLORIDE 102 mmol/L (98-107)
[2017-12-04 06:11] LABS: MEAN CORPUSCULAR HEMOGLOBIN 31.1 pg (27.5-34.5); MEAN CORPUSCULAR HGB CONC 34.4 g/dL (33.2-36.2); MEAN CORPUSCULAR VOLUME 90.5 fL (81-97); RED BLOOD COUNT 3.19 x10^6/uL (4.38-5.82)
[2017-12-04 06:13] LABS: ALKALINE PHOSPHATASE 372 U/L (45-117); BILIRUBIN,TOTAL 3.3 mg/dL (0.2-1.0); CREATININE 0.54 mg/dL (0.7-1.3); TOTAL PROTEIN 5.7 g/dL (6.4-8.2)
[2017-12-04 06:41] LABS: BASOPHILS # (AUTO) 0.02 x10^3/uL (0-0.1); BASOPHILS % (AUTO) 0 % (0-1); EOSINOPHILS # (AUTO) 0.05 x10^3/uL (0-0.4); EOSINOPHILS % (AUTO) 1 % (1-7); LYMPHOCYTES # (AUTO) 0.69 x10^3/uL (1-3.4); LYMPHOCYTES % (AUTO) 16 % (22-44); MD SCAN; MEAN PLATELET VOLUME 7.9 fL (7.4-10.4); MONOCYTES % (AUTO) 12 % (2-9); NEUTROPHILS # (AUTO) 3.08 x10^3/uL (1.8-6.8); NEUTROPHILS % (AUTO) 71 % (42-75); PLATELET COUNT 102 x10^3/uL (130-400)
[2017-12-04] MEDS ORDERED: POTASSIUM PHOSPHATE 44 MEQ in SODIUM CHLORIDE 0.9% 500 ML IV ONE (08:30)
[2017-12-04] MEDS ORDERED: MAGNESIUM SULFATE PMX 2GM/50ML 50 ML IV ONE (08:30)
[2017-12-04] MEDS: PHENOBARBITAL 20 MG/5 ML ORAL SOL PO SCH ×2 (11:34→20:54)
[2017-12-04] MEDS: PANTOPROZOLE 40MG TABLET PO SCH ×2 (11:34→22:10)
[2017-12-04] MEDS: SENNA/DOCUSATE TABLET PO SCH (11:34)
[2017-12-04 12:22] VITALS: BP 135/91
[2017-12-04] MEDS ORDERED: OMNIPAQUE 350 MG/ML, 100ML BOTTLE ONE (13:42)
[2017-12-04] MEDS: ONDANSETRON 2MG/ML, 2ML IVPush PRN (16:12)
[2017-12-04] MEDS: POTASSIUM CHLORIDE 20 MEQ, MAGNESIUM SULFATE 1 GM, FOLIC ACID 1 MG, THIAMINE 200 MG, MV... IV SCH (16:58)
[2017-12-04 18:49] VITALS: BP 134/88
[2017-12-05] MEDS: OXYcodone IR 5MG TABLET PO PRN ×5 (00:13→21:01)
[2017-12-05] MEDS: LACTATED RINGERS 1,000 ML IV SCH ×3 (00:54→16:22)
[2017-12-05 01:58] VITALS: BP 131/86
[2017-12-05 04:36] LABS: MEAN CORPUSCULAR HEMOGLOBIN 30.5 pg (27.5-34.5); MEAN CORPUSCULAR HGB CONC 33.4 g/dL (33.2-36.2); MEAN CORPUSCULAR VOLUME 91.3 fL (81-97); MEAN PLATELET VOLUME 7.1 fL (7.4-10.4); PLATELET COUNT 135 x10^3/uL (130-400); RED BLOOD COUNT 3.12 x10^6/uL (4.38-5.82); RED CELL DISTRIBUTION WIDTH 20.3 % (9.4-14.8)
[2017-12-05 04:40] LABS: ALANINE AMINOTRANSFERASE 99 U/L (12-78); ALBUMIN 2.5 g/dL (3.4-5.0); ANION GAP 5 mmol/L (5-15); CALCIUM 7.2 mg/dL (8.5-10.1); CHLORIDE 96 mmol/L (98-107); CREATININE 0.61 mg/dL (0.7-1.3)
[2017-12-05 04:42] LABS: ALKALINE PHOSPHATASE 344 U/L (45-117); BILIRUBIN,TOTAL 2.7 mg/dL (0.2-1.0); TOTAL PROTEIN 5.7 g/dL (6.4-8.2)
[2017-12-05 05:55] LABS: MD YES
[2017-12-05 05:57] LABS: EOS#(MANUAL) 0.05 x10^3/uL (0.0-0.4); EOS% (MANUAL) 1 % (1-7); LYMPH#(MANUAL) 0.85 x10^3/uL (1-3.4); LYMPHS% (MANUAL) 17 % (22-44); MONOS#(MANUAL) 0.95 x10^3/uL (0.3-2.7); MONOS% (MANUAL) 19 % (2-9); REACTIVE LYMPHS # (MANUAL) 0.05 x10^3/uL (0-0); REACTIVE LYMPHS % (MANUAL) 1 % (0-0); SEGS% (MANUAL) 62 % (42-75)
[2017-12-05 05:58] LABS: <PLATELET ESTIMATE> ADEQUATE; <PLT MORPHOLOGY> NORMAL PLT MORPH; ANISOCYTOSIS 1+; POLYCHROMASIA 1+
[2017-12-05 07:09] VITALS: BP 131/86
[2017-12-05] MEDS: PANTOPROZOLE 40MG TABLET PO SCH ×2 (08:35→21:01)
[2017-12-05] MEDS: PHENOBARBITAL 20 MG/5 ML ORAL SOL PO SCH ×2 (08:35→21:00)
[2017-12-05] MEDS: SENNA/DOCUSATE TABLET PO SCH (08:36)
[2017-12-05 12:45] VITALS: BP 149/91
[2017-12-05] MEDS: POTASSIUM CHLORIDE 20 MEQ, MAGNESIUM SULFATE 1 GM, FOLIC ACID 1 MG, THIAMINE 200 MG, MV... IV SCH (16:47)
[2017-12-05 18:38] VITALS: BP 139/93
[2017-12-05] MEDS ORDERED: MAGNESIUM SULFATE PMX 2GM/50ML 50 ML IV ONE (21:00)
[2017-12-05] MEDS ORDERED: POTASSIUM CHLORIDE 20 MEQ TAB.ER.PRT PO ONE (21:00)
[2017-12-05] MEDS: THIAMINE 100MG TABLET PO SCH (21:01)
[2017-12-05] MEDS: FOLIC ACID 1 MG TABLET PO SCH (21:01)
[2017-12-06 00:30] VITALS: BP 125/84
[2017-12-06] MEDS: OXYcodone IR 5MG TABLET PO PRN ×5 (01:14→20:13)
[2017-12-06 05:08] LABS: ALBUMIN 2.6 g/dL (3.4-5.0); ANION GAP 9 mmol/L (5-15); CALCIUM 7.5 mg/dL (8.5-10.1); CHLORIDE 104 mmol/L (98-107)
[2017-12-06 05:13] LABS: ALANINE AMINOTRANSFERASE 86 U/L (12-78); ALKALINE PHOSPHATASE 308 U/L (45-117); BILIRUBIN,TOTAL 2.3 mg/dL (0.2-1.0); CREATININE 0.68 mg/dL (0.7-1.3)
[2017-12-06 05:25] LABS: MEAN CORPUSCULAR HEMOGLOBIN 30.8 pg (27.5-34.5); MEAN CORPUSCULAR HGB CONC 33.4 g/dL (33.2-36.2); MEAN CORPUSCULAR VOLUME 92.2 fL (81-97); MEAN PLATELET VOLUME 8.2 fL (7.4-10.4); PLATELET COUNT 137 x10^3/uL (130-400); RED BLOOD COUNT 3.45 x10^6/uL (4.38-5.82); RED CELL DISTRIBUTION WIDTH 21.9 % (9.4-14.8)
[2017-12-06 05:53] LABS: MD YES
[2017-12-06 05:55] LABS: BAND#(MANUAL) 0.04 x10^3/uL; BANDS%(MANUAL) 1 % (0-7); EOS#(MANUAL) 0.13 x10^3/uL (0.0-0.4); EOS% (MANUAL) 3 % (1-7); LYMPH#(MANUAL) 0.88 x10^3/uL (1-3.4); LYMPHS% (MANUAL) 21 % (22-44); MONOS#(MANUAL) 0.71 x10^3/uL (0.3-2.7); MONOS% (MANUAL) 17 % (2-9); SEG#(MANUAL) 2.44 x10^3/uL (1.8-6.8); SEGS% (MANUAL) 58 % (42-75)
[2017-12-06 05:56] LABS: <PLATELET ESTIMATE> ADEQUATE; <PLT MORPHOLOGY> NORMAL PLT MORPH; ANISOCYTOSIS 1+; POLYCHROMASIA 1+
[2017-12-06 06:22] VITALS: BP 124/85
[2017-12-06] MEDS: SENNA/DOCUSATE TABLET PO SCH (08:00)
[2017-12-06] MEDS: PHENOBARBITAL 20 MG/5 ML ORAL SOL PO SCH ×2 (08:01→20:13)
[2017-12-06] MEDS: PANTOPROZOLE 40MG TABLET PO SCH ×2 (09:57→20:13)
[2017-12-06 14:54] VITALS: BP 129/82
[2017-12-06] MEDS: ONDANSETRON 2MG/ML, 2ML IVPush PRN (16:10)
[2017-12-06 19:36] VITALS: BP 123/74
[2017-12-06] MEDS: THIAMINE 100MG TABLET PO SCH (20:13)
[2017-12-06] MEDS: FOLIC ACID 1 MG TABLET PO SCH (20:13)
[2017-12-06] MEDS ORDERED: BENZONATATE 100 MG CAPSULE PO ONE (22:00)
[2017-12-07 00:45] VITALS: BP 138/82
[2017-12-07] MEDS: OXYcodone IR 5MG TABLET PO PRN ×5 (01:49→18:53)
[2017-12-07] MEDS: ONDANSETRON 2MG/ML, 2ML IVPush PRN (01:51)
[2017-12-07 07:10] VITALS: BP 130/78
[2017-12-07] MEDS: SENNA/DOCUSATE TABLET PO SCH (07:56)
[2017-12-07] MEDS: PHENOBARBITAL 20 MG/5 ML ORAL SOL PO SCH ×2 (08:17→21:39)
[2017-12-07] MEDS: PANTOPROZOLE 40MG TABLET PO SCH ×2 (08:17→21:39)
[2017-12-07 12:00] VITALS: BP 132/81
[2017-12-07 18:30] VITALS: BP 130/78
[2017-12-07] MEDS: ACETAMINOPHEN 500 MG TABLET PO SCH (18:53)
[2017-12-07] MEDS: FOLIC ACID 1 MG TABLET PO SCH (21:39)
[2017-12-07] MEDS: THIAMINE 100MG TABLET PO SCH (21:39)
[2017-12-08 02:00] VITALS: BP 120/75
[2017-12-08] MEDS: ACETAMINOPHEN 500 MG TABLET PO SCH ×2 (04:28→10:32)
[2017-12-08] MEDS: OXYcodone IR 5MG TABLET PO PRN (04:29)
[2017-12-08 07:18] VITALS: BP 110/74
[2017-12-08] MEDS: PANTOPROZOLE 40MG TABLET PO SCH (10:32)
[2017-12-08] MEDS: SENNA/DOCUSATE TABLET PO SCH (10:32)
[2017-12-08] MEDS ORDERED: IBUP-11 PO (10:40)
[2017-12-08] MEDS ORDERED: MELO7.5T31 PO (10:40)
[2017-12-08] MEDS ORDERED: ACET500T71 PO (10:40)
[2017-12-08] MEDS ORDERED: FAMO20TA37 PO (10:40)
== END 2017-12-08 11:47 | disposition home or self-care (01) | DRG 432 ==
LOC: ED 12:26 → EDIP 12:27 → ED 12:57 → CCU 15:04 → 3NE 12-04 12:14
PROVIDERS: ADMIT Internal Medicine; ATTEND Internal Medicine
PROC: 02H633Z Insertion of Infusion Device into Right Atrium, Percutaneous Approach (ICD-10-PCS; principal; 2017-12-01)
PROC: 30233N1 Transfusion of Nonautologous Red Blood Cells into Peripheral Vein, Percutaneous Approach (ICD-10-PCS; 2017-12-03)
DX: K70.40 Alcoholic hepatic failure without coma (principal); K85.20 Alcohol induced acute pancreatitis without necrosis or infection; K70.10 Alcoholic hepatitis without ascites; N17.0 Acute kidney failure with tubular necrosis; E43 Unspecified severe protein-calorie malnutrition; F10.231 Alcohol dependence with withdrawal delirium; E87.2 Acidosis; D69.6 Thrombocytopenia, unspecified; D62 Acute posthemorrhagic anemia; E83.39 Other disorders of phosphorus metabolism; N17.9 Acute kidney failure, unspecified; E87.1 Hypo-osmolality and hyponatremia; B17.9 Acute viral hepatitis, unspecified; J98.11 Atelectasis; D63.8 Anemia in other chronic diseases classified elsewhere; E83.42 Hypomagnesemia; E16.2 Hypoglycemia, unspecified; E86.0 Dehydration; E87.6 Hypokalemia; F32.9 Major depressive disorder, single episode, unspecified; K76.0 Fatty (change of) liver, not elsewhere classified; N28.1 Cyst of kidney, acquired; R74.0 Nonspecific elevation of levels of transaminase and lactic acid dehydrogenase [LDH]; Z68.24 Body mass index [BMI] 24.0-24.9, adult; Z90.49 Acquired absence of other specified parts of digestive tract; Z91.5 Personal history of self-harm
CPT/HCPCS: 36415; 36569; 71045; 74021; 74177; 76700; 80048; 80053; 80061; 80307; 81001; 82140; 82436; 82533; 82570; 82803; 83036; 83605; 83690; 83735; 84100; 84133; 84300; 84443; 84484; 85014; 85018; 85025; 85610; 85651; 85730; 86850; 86900; 86923; 87040; 87081; 87086; 93005; 96361; 96365; 96367; 96368; 96375; 96376; J2354; J2405; J2550; J2560; J3411; J3475; J3480; J7070; Q9967; C9113; J2060; J7030; J7040; J7050; J7120; P9016